=== PATIENT | female | born 1965 | race Caucasian/White ===

== ENCOUNTER 2017-01-14 07:59 | Day surgery (SDC) | payer OTHER ==
[~2017-01-14 07:59] MED LIST: ABILIFY20 MG PO; ADDERALL XR10 MG PO; ADVAIR 10028 PUFF/IN IN; AMOX/CLAV POT 81 TAB PO; CIPRO 500MG TA500 MG PO; CITRACAL + D 251 TAB PO; CRESTOR10 MG PO; CYMBALTA30 MG PO; FLONASE 50 MCG16 GM; FORTEO250 MCG/ML SC; GLUCOSAMINE SU PO; IRON TABLETS325 MG PO; LEVOTHROID0.137 MG PO; LIPITOR20 MG PO; LORATADINE 10MG10 M1 PO; LORTAB 500 MG-71 TAB PO; MELOXICAM15 MG PO; MUCINEX600 MG PO; MULTI VITAMINS1 TAB PO; OMEPRAZOLE40 MG PO; PREMPRO 0.625 M1 TAB PO; PREVACID30 MG PO; PROVIGIL200 MG PO; PROZAC20 MG PO; PYRIDIUM 200MG200 MG PO; TIZANIDINE HCL2 MG PO; TOPAMAX25 MG PO; TRILEPTAL 150150 MG PO; VENTOLIN H0.09 MG/AC IH; VITAMIN D1000 IU PO; WELLBUTRIN 150150 MG PO
--- NOTE | 2017-01-14 09:21 | Operative Note ---
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 She also has a history of colon polyps or 2 years ago. Her last colonoscopy was somewhat complicated by moderate bowel preparation , tortuosity, and spasticity. Findings: External hemorrhoidal tags with no active bleeding or thrombosis Bowel preparation fair to moderate Tortuosity and spasticity improved versus prior evaluation Polyp at 45 cm Focal inflammation at 10 cm Procedure Description: After informed consent was obtained, the patient was taken to the endoscopy suite. IV sedation ensued after she was transferred to the LEFT lateral decubitus position. Digital rectal exam revealed hemorrhoidal tags with no thrombosis or bleeding. The colonoscope was placed in position. The entire colon was evaluated. Bowel preparation was fair to moderate with large volume irrigation and suctioning used to improve visualization. A polyp at 45 cm was excised with cold biopsy forceps. Focal inflammation at 10 cm was biopsied. No additional mucosal lesions were noted. The colonoscope was carefully removed and the patient was transferred to recovery. EBL (ml): 1 Anesthesia: IV sedation with 9 mg of Versed and 200 g of fentanyl Complications: No immediate Specimens: Polyp at 45 cm Biopsy of focal inflammation at 10 cm Disposition Disposition: Stable to recovery from where she will be discharged home. She will follow-up in one week. Repeat colonoscopy is pending pathology but will likely be between 2-3 years secondary to history of complex polyps and polyp noted on short-term reevaluation. at [id number]
[2017-01-14 14:47] VITALS: BP 99/63
== END 2017-01-14 10:10 | disposition home or self-care (01) ==
LOC: SDC 07:59
PROVIDERS: Surgery
PROC: 0DBE8ZX Excision of Large Intestine, Via Natural or Artificial Opening Endoscopic, Diagnostic (ICD-10-PCS; principal; 2017-01-14 08:30)
DX: Z09 Encounter for follow-up examination after completed treatment for conditions other than malignant neoplasm (principal); Z86.010 Personal history of colon polyps; K62.89 Other specified diseases of anus and rectum; K63.5 Polyp of colon

== ENCOUNTER → 2017-01-21 | Outpatient (CLI) | payer OTHER ==
[2017-01-21 11:22] LABS: BUN 19 mg/dL (7-18); GFR (ESTIMATED) 43 ML/MIN (59-)
== END ==
LOC: LAB 11:01
PROVIDERS: Surgery
DX: D36.9 Benign neoplasm, unspecified site (principal)